=== PATIENT | female | born 1995 | race Caucasian/White ===

== ENCOUNTER → 2017-05-05 | Outpatient (CLI) | payer BC ==
[~2017-05-05] MED LIST: ALBUAER19 INH
[2017-05-05 16:39] LABS: BASO % 0.5 %; BASO ABS # 0.05 K/uL (0-0.2); EOS % 3.8 %; EOS ABS # 0.37 K/uL (0-0.5); HEMATOCRIT 42.7 % (37-47); HEMOGLOBIN 14.4 g/dL (12.0-16.0); IG# 0.02 K/uL (0.00-0.02); LYMPH % 20.3 %; LYMPH ABS # 1.99 K/uL (1.2-3.4); MEAN CELL VOLUME 84.6 fL (80-100); MEAN CORPUSCULAR HEMOGLOBIN 28.5 pg (25-34); MEAN CORPUSCULAR HGB CONC 33.7 g/dl (32-36); MEAN PLATELET VOLUME 10.3 fL (7.4-10.4); MONO % 6.7 %; MONO ABS # 0.66 K/uL (0.11-0.59); NEUT % 68.5 %; NEUT ABS # 6.69 K/uL (1.4-6.5); PLATELET COUNT 318 K/uL (130-400); RED CELL DISTRIBUTION WIDTH CV 13.4 % (11.5-14.5); RED CELL DISTRIBUTION WIDTH SD 40.7 fL (36.4-46.3); WHITE BLOOD COUNT 9.78 K/uL (4.8-10.8)
== END | disposition home or self-care (01) ==
LOC: C.LAB 15:58
PROVIDERS: ATTEND Nurse Practitioner Adult Health
DX: Z34.81 Encounter for supervision of other normal pregnancy, first trimester (principal); Z3A.00 Weeks of gestation of pregnancy not specified

== ENCOUNTER 2017-07-17 22:46 | Emergency (ER) | payer BC ==
[~2017-07-17] VITALS: Ht 167.6 cm; Wt 69.8 kg
[2017-07-17 22:50] VITALS: TEMP 36.9; Ht 167.6 cm; Wt 69.8 kg
[2017-07-17] MEDS ORDERED: PRENTAB26 PO (23:14)
[2017-07-17] MEDS ORDERED: VNTHFA/IN INH (23:14)
[2017-07-17 23:17] VITALS: O2SAT 98
[2017-07-17 23:22] LABS: BASO % 0.2 %; BASO ABS # 0.02 K/uL (0-0.2); EOS % 3.7 %; EOS ABS # 0.38 K/uL (0-0.5); HEMATOCRIT 37.5 % (37-47); HEMOGLOBIN 13.1 g/dL (12.0-16.0); IG# 0.03 K/uL (0.00-0.02); LYMPH % 17.8 %; LYMPH ABS # 1.83 K/uL (1.2-3.4); MEAN CELL VOLUME 83.1 fL (80-100); MEAN CORPUSCULAR HGB CONC 34.9 g/dl (32-36); MONO % 6.9 %; MONO ABS # 0.71 K/uL (0.11-0.59); NEUT % 71.1 %; PLATELET COUNT 258 K/uL (130-400); RED CELL DISTRIBUTION WIDTH CV 13.2 % (11.5-14.5); RED CELL DISTRIBUTION WIDTH SD 40.2 fL (36.4-46.3); WHITE BLOOD COUNT 10.27 K/uL (4.8-10.8)
[2017-07-17 23:41] LABS: ALBUMIN 3.4 gm/dl (3.4-5.0); ALT/SGPT 36 U/L (12-78); AST/SGOT 36 U/L (15-37); BLOOD UREA NITROGEN 9 mg/dl (7-18); CALCIUM 8.8 mg/dl (8.5-10.1); CARBON DIOXIDE 23 mmol/L (21-32); CREATININE 0.64 mg/dl (0.60-1.20); GLUCOSE 81 mg/dl (70-99); POTASSIUM 3.4 mmol/L (3.5-5.1); SODIUM 139 mmol/L (136-145)
[2017-07-17 23:44] LABS: ALKALINE PHOSPHATASE 57 U/L (45-117); TOTAL PROTEIN 7.4 gm/dl (6.4-8.2)
[2017-07-18 01:15] VITALS: BP 115/77; PULSE 85; O2SAT 100
--- NOTE | 2017-07-18 04:47 | EMERGENCY ROOM VISIT NOTE ---
History First contact with patient: 22:54 Chief Complaint: ABDOMINAL PAIN Stated Complaint: L SIDE PAIN, Nursing Triage Summary: patient complains of abdominal pain since around 1600. Patient is 15 weeks and has a history of miscarrying. History of Present Illness The patient is a 21 year old female who presents to the Emergency Room with complaints of left lower side pain for the past few hours of this getting better that started at 4 PM. Pain is now currently resolved but with 5 out of 10 earlier today. It did not radiate. Nothing made it better or worse. Patient is 15 weeks . She had 2 prior miscarriages. No living children. Blood type is O+. She follows with POWER CHISEL OPERATOR. She is an appointment on Tuesday. Patient denies chest pain, dyspnea, fever, chills, nausea, vomiting, diarrhea, urinary symptoms, vaginal itching discharge or bleeding. Review of Systems An 10 system review of systems was completed with positives and pertinent negatives listed in the HPI. Past Medical/Surgical History Miscarriage Family History Diabetes mellitus FHx: cancer FHx: heart disease FHx: lung disease Hypertension Social History Smoking Status: Former Smoker Alcohol Use: none Drug Use: none Housing Status: lives with family Occupation Status: employed Current/Historical Medications Scheduled Multivit/Min/Iron/Fol Ac/Pren ( Vitamin), 1 TAB PO DAILY Scheduled PRN Albuterol Hfa (Ventolin Hfa), 2 PUFFS INH Q6H PRN for SOB/Wheezing Physical Exam Vital Signs Date Time Temp Pulse Resp B/P (MAP) Pulse Ox O2 Delivery O2 Flow Rate FiO2 07/18/17 01:15 85 21 115/77 100 07/18/17 00:20 82 18 114/64 99 Room Air 07/17/17 23:30 84 07/17/17 23:17 98 Room Air 07/17/17 22:50 36.9 98 16 127/77 100 Room Air Physical Exam VITALS: Vitals are noted on the nurse's note and reviewed by myself. Vital signs stable. GENERAL: Pleasant female anxious appearing, in no acute distress, nondiaphoretic , well-developed well-nourished. SKIN: Capillary reflex less than 2 seconds. HEENT: Normocephalic. PERRLA. EOMI. Nares patent. Mucous membranes moist. Neck is supple without nuchal rigidity. HEART: Regular rate and rhythm without murmurs gallops or rubs. LUNGS: Clear to auscultation bilaterally without wheezes, rales or rhonchi. No retractions or accessory muscle use. ABDOMEN: Positive bowel sounds x 4. Normal tympanic percussion. Soft, nontender, , without masses or organomegaly. Ashraf sign negative. No guarding or rebound tenderness. No CVA tenderness MUSCULOSKELETAL: No gross musculoskeletal defects. NEURO: Patient was alert and oriented to person place and time. Normal sensation to light and sharp touch. No focal neurological deficits. Medical Decision & Procedures Laboratory Results 07/17/17 23:11 Red Blood Count 4.51, Mean Corpuscular Volume 83.1, Mean Corpuscular Hemoglobin 29.0, Mean Corpuscular Hemoglobin Concent 34.9, Mean Platelet Volume 10.0, Neutrophils (%) (Auto) 71.1, Lymphocytes (%) (Auto) 17.8, Monocytes (%) (Auto) 6.9, Eosinophils (%) (Auto) 3.7, Basophils (%) (Auto) 0.2, Neutrophils # (Auto) 7.30, Lymphocytes # (Auto) 1.83, Monocytes # (Auto) 0.71, Eosinophils # (Auto) 0.38, Basophils # (Auto) 0.02 07/17/17 23:11 Test 07/17/17 23:10 07/17/17 23:11 Urine Color YELLOW Urine Appearance CLOUDY (CLEAR) Urine pH 6.0 (4.5-7.5) Urine Specific [place] 1.021 (1.000-1.030) Urine Protein NEG (NEG) Urine Glucose (UA) NEG (NEG) Urine Ketones NEG (NEG) Urine Occult Blood NEG (NEG) Urine Nitrite NEG (NEG) Urine Bilirubin NEG (NEG) Urine Urobilinogen NEG (NEG) Urine Leukocyte Esterase SMALL (NEG) Urine WBC (Auto) 10-30 /hpf (0-5) Urine RBC (Auto) 0-4 /hpf (0-4) Urine Hyaline Casts (Auto) 1-5 /lpf (0-5) Urine Epithelial Cells (Auto) >30 /lpf (0-5) Urine Bacteria (Auto) 1+ (NEG) White Blood Count 10.27 K/uL (4.8-10.8) Red Blood Count 4.51 M/uL (4.2-5.4) Hemoglobin 13.1 g/dL (12.0-16.0) Hematocrit 37.5 % (37-47) Mean Corpuscular Volume 83.1 fL (80-100) Mean Corpuscular Hemoglobin 29.0 pg (25-34) Mean Corpuscular Hemoglobin Concent 34.9 g/dl (32-36) Platelet Count 258 K/uL (130-400) Mean Platelet Volume 10.0 fL (7.4-10.4) Neutrophils (%) (Auto) 71.1 % Lymphocytes (%) (Auto) 17.8 % Monocytes (%) (Auto) 6.9 % Eosinophils (%) (Auto) 3.7 % Basophils (%) (Auto) 0.2 % Neutrophils # (Auto) 7.30 K/uL (1.4-6.5) Lymphocytes # (Auto) 1.83 K/uL (1.2-3.4) Monocytes # (Auto) 0.71 K/uL (0.11-0.59) Eosinophils # (Auto) 0.38 K/uL (0-0.5) Basophils # (Auto) 0.02 K/uL (0-0.2) RDW Standard Deviation 40.2 fL (36.4-46.3) RDW Coefficient of Variation 13.2 % (11.5-14.5) Immature Granulocyte % (Auto) 0.3 % Immature Granulocyte # (Auto) 0.03 K/uL (0.00-0.02) Anion Gap 8.0 mmol/L (3-11) Est Creatinine Clear Calc Drug Dose 127.9 ml/min Estimated GFR () 145.8 Estimated GFR (Non- 125.8 BUN/Creatinine Ratio 14.5 (10-20) Calcium Level 8.8 mg/dl (8.5-10.1) Total Bilirubin 0.2 mg/dl (0.2-1) Direct Bilirubin < 0.1 mg/dl (0-0.2) Aspartate Amino Transf (AST/SGOT) 36 U/L (15-37) Alanine Aminotransferase (ALT/SGPT) 36 U/L (12-78) Alkaline Phosphatase 57 U/L (45-117) Total Protein 7.4 gm/dl (6.4-8.2) Albumin 3.4 gm/dl (3.4-5.0) Human Chorionic Gonadotropin, Quant 89052 mIU/mL ED Course Prior records/ancillary studies reviewed. Triage Nursing notes reviewed. The patient's history was concerning for abdominal abdominal discomfort that is resolved who is currently 15 weeks Differential diagnosis: Etiologies such as ligamental stretching, problem, appendicitis, diverticulitis, PUD, biliary pathology, UTI, pancreatitis, obstruction, mesenteric ischemia, aortic pathology, infections, inflammatory bowel disease, renal colic, as well as others were entertained. Physical examination findings: As above. ER treatment provided: Patient was observed Limited bedside ultrasound by myself shows viable IUP with heart rate in the 150s. Patient took a picture of the fetus with her cell phone. On reassessment the patient felt better. Diagnostics interpreted by me: The labs revealed stable H&H. Chart review shows O+ blood. Negative urine Imaging studies: US OB 1st TRIMESTER: Single intrauterine with heart rate of 148 bpm. Average ultrasound age of 14 weeks 3 days. Posterior placenta which is low-lying. This may be due to early gestational age. Recommend attention on follow-up exams. Probable contraction noted in the posterior inferior uterus. Left ovary measures 3.3 x 2.0 x 3.0 cm. Normal appearance with normal color Doppler flow. Right ovary measures 3.4 x 3.3 x 1.4 cm. Normal appearance with normal color Doppler flow. Radiologist: Venkat Patel M.D. Study ready at 00:30 and initial results transmitted Exam and history seem consistent with viable . Pain could have been from contraction versus ligamentous stretching. Patient had no pain on the ER. She is well-appearing. She is an appointment this week with her POWER CHISEL OPERATOR and is advised to keep this. Patient had no active bleeding. Stable H&H. She is advised to return to the ER meaty for pain, fevers, bleeding, worsening signs or symptoms or as needed. By the evaluation outlined above emergent etiologies such as appendicitis, diverticulitis, PUD, biliary pathology, UTI, pancreatitis, obstruction, mesenteric ischemia, aortic pathology, infections, inflammatory bowel disease, renal colic, as well as others were deemed relatively unlikely. The pt informed about the findings as listed above. All questions were answered and pleased with the treatment. Return instructions were outlined and the patient was discharged in stable condition. Case reviewed with my attending Referral: The patient was referred back to their POWER CHISEL OPERATOR for follow-up in 2 to 3 days for a recheck of the current condition. The chart was completed utilizing [employer] Speech voice recognition software. Grammatical errors, random word insertions, pronoun errors, and incomplete sentences are an occassional consequence of this system due to software limitations, ambient noise, and hardware issues. Any formal questions or concerns about the content, text, or information contained within the body of this dictation should be directly addressed to the physician veterinary technician assistant for clarification. Medical Decision As above Medication Reconcilliation Current Medication List: was personally reviewed by me Blood Pressure Screening Patient's blood pressure: Normal blood pressure Impression Primary Impression: Abdominal cramping affecting Departure Information Dispostion Home / Self-Care Condition GOOD Forms HOME CARE DOCUMENTATION FORM, Work Instructions, Return To Work: 3 days IMPORTANT VISIT INFORMATION Patient Instructions [facility], ED Pelvic Pain Preg UKO 2 or 3 Tri Additional Instructions Rest. Stay well hydrated. No strenuous activity or intercourse until cleared by POWER CHISEL OPERATOR. Acetaminophen(Tylenol) may be used for fever or pain. Use 1000mg every six hours as needed. Avoid using more than 3000mg in a 24 hour period. Rest and drink plenty of fluids as tolerated. Continue current medications. Return to the ER immediately for vaginal bleeding, abdominal pain, vomiting, fevers, chest pains, difficulty breathing, worsening of your condition, or as needed. Follow up with your POWER CHISEL OPERATOR in 2-3 days for a recheck of your current condition. Work Instructions Return To Work: 3 days
--- NOTE | 2017-07-18 06:54 | DIAGNOSTIC IMAGING REPORT ---
<14 WKS SINGLE CLINICAL HISTORY: pain, 15 wks, ? syst/torsion, preg complication pelvic pain TECHNIQUE: Ultrasound COMPARISON STUDY: None FINDINGS: Single, viable intrauterine estimated at 14 weeks 3 days gestational age. A heartbeat is confirmed. Right ovary measures 3.3 cm at maximum with the left ovary 3.2 cm. Normal vascular flow is present. IMPRESSION: Single, viable intrauterine of approximately 14 weeks 3 days gestational age. The above report was generated using voice recognition software. It may contain grammatical, syntax or spelling errors. Electronically signed by: Sy Oconnor M.D. 07/18/2017 6:52 AM Dictated Date/Time: 07/18/2017 6:51 AM
== END 2017-07-18 01:16 | disposition home or self-care (01) ==
LOC: C.EDB 22:47
DX: O99.89 Other specified diseases and conditions complicating pregnancy, childbirth and the puerperium (principal); Z3A.14 14 weeks gestation of pregnancy; R10.32 Left lower quadrant pain; Z87.891 Personal history of nicotine dependence; Z79.899 Other long term (current) drug therapy